=== PATIENT | male | born 1965 | race Caucasian/White ===

== ENCOUNTER 2017-09-17 21:18 | Emergency (ER) | payer BC ==
[2017-09-17 21:58] VITALS: BP 124/70; PULSE 76; BMI 23.5
[2017-09-17] MEDS ORDERED: ACETAMINOPHEN 325 MG TABLET (FP) ONE (22:53)
[2017-09-17] MEDS ORDERED: ACETAMINOPHEN 325 MG TABLET (FP) PO ONE (22:55)
[2017-09-17] MEDS ORDERED: SODIUM CHLORIDE 1,000 ML IV STA (23:07)
[2017-09-17] MEDS ORDERED: ONDANSETRON 4 MG/2 ML VIAL IVPUSH ONE (23:07)
--- NOTE | 2017-09-17 23:07 | PDOC ---
History of Present Illness - General Chief Complaint: Cold Symptoms Stated Complaint: FLU Time Seen by Provider: 09/17/17 21:51 - History of Present Illness Initial Comments: This otherwise healthy 52-year-old [employer] presents with 2 day history of body aches, malaise, nonproductive cough and fever. Patient states that he has been trying to keep up with oral hydration but has developed nausea and mild epigastric discomfort over the last several hours. Subsequently, he is now lightheaded with movement. Patient received flu vaccine this year. Past History - Past Medical History Allergies/Adverse Reactions: Allergies Allergy/AdvReac Type Severity Reaction Status Date / Time No Known Allergies Allergy Verified 09/17/17 21:21 Home Medications: Ambulatory Orders Oseltamivir Phosphate [Tamiflu -] 75 mg PO BID #10 capsule 09/18/17 COPD: No - Suicide/Smoking/Psychosocial Hx Smoking History: Never smoked Have you smoked in the past 12 months: No 'Breaking Loose' booklet given: 02/14/16 Hx Alcohol Use: No Drug/Substance Use Hx: No Substance Use Type: None *Physical Exam - Vital Signs Last Vital Signs Temp Pulse Resp BP Pulse Ox 103.0 F H 76 16 124/70 98 09/17/17 21:18 09/17/17 21:18 09/17/17 21:18 09/17/17 21:18 09/17/17 21:18 - Physical Exam Comments: GENERAL: Adult male, alert and oriented 3, in no acute distress HEAD: Normal with no signs of trauma. EYES: PERRLA, EOMI, sclera anicteric, conjunctiva clear. ENT: Ears normal, nares patent, oropharynx clear without exudates. Dry mucous membranes. NECK: Normal range of motion, supple without lymphadenopathy, JVD, or masses. LUNGS: Breath sounds equal, clear to auscultation bilaterally. No wheezes, and no crackles. HEART:Regular rate and rhythm, normal S1 and S2 without murmur, rub or gallop. ABDOMEN:.normal bowel sounds No guarding,tenderness or rebound.No masses No distention. EXTREMITIES: Normal range of motion, no edema. No clubbing or cyanosis. No erythema, or tenderness. NEUROLOGICAL: Cranial nerves II through XII grossly intact. Normal speech. No focal neurological deficits. MUSCULOSKELETAL: Back non-tender to palpation, no CVA tenderness SKIN: Warm, Dry, normal turgor, no rashes or lesions noted. ED Treatment Course - Medications Given in the ED: ED Medications Discontinued Medications Generic Name Dose Route Start Last Admin Trade Name Kelby ALVARADO Reason Stop Dose Admin Acetaminophen 650 mg 09/17/17 22:55 09/17/17 22:55 Tylenol - PO 09/17/17 22:56 650 mg NOW ONE Administration Medical Decision Making - Medical Decision Making Clinical presentation consistent with acute influenza. Patient was given a liter of normal saline IV as well as Zofran 4 mg IV. Patient received Tylenol 650 mg by mouth for his fever of 103 Patient will be discharged with Tamiflu 75 mg by mouth first dose given here. Prescription for Tamiflu 75 mg twice a day for 5 days has been transmitted to the pharmacy. He should not return to work until he is afebrile for 24 hours He should return to the emergency room if he has persistent high fever or difficulty breathing *DC/Admit/Observation/Transfer Diagnosis at time of Disposition: Acute viral syndrome - Discharge Dispostion Disposition: HOME Condition at time of disposition: Stable - Prescriptions Prescriptions: Oseltamivir Phosphate [Tamiflu -] 75 mg PO BID #10 capsule - Referrals - Patient Instructions Printed Discharge Instructions: Influenza Additional Instructions: Tamiflu 75 mg twice a day for total of 5 days No work until you have no fever for 24 hours Drink plenty of fluids; acetaminophen/ibuprofen/naproxen as needed for fever Return to ER if you have persistent high fever; severe cough or shortness of breath - Post Discharge Activity Forms/Work/School Notes: Back to Work
[2017-09-17] MEDS ORDERED: ONDANSETRON 4 MG/2 ML VIAL ONE (23:25)
[2017-09-17] MEDS ORDERED: OSELTAMIVIR PHOSPHATE 75 MG CAPSULE PO ONE (23:56)
[2017-09-17] MEDS ORDERED: OSELTAMIVIR PHOSPHATE 75 MG CAPSULE ONE (23:59)
[2017-09-18] MEDS ORDERED: SODIUM CHLORIDE 1,000 ML IV STA (00:02)
[2017-09-18 00:03] VITALS: TEMP 102.2
[2017-09-18] MEDS ORDERED: SODIUM CHLORIDE 0.9% 1000 ML INFUS.BAG IV ONE (00:05)
== END 2017-09-18 00:35 | disposition home or self-care (01) ==
LOC: FER 21:18
PROC: 3E0337Z Introduction of Electrolytic and Water Balance Substance into Peripheral Vein, Percutaneous Approach (ICD-10-PCS; principal; 2017-09-17)
PROC: 3E033GC Introduction of Other Therapeutic Substance into Peripheral Vein, Percutaneous Approach (ICD-10-PCS; 2017-09-17)
DX: B34.9 Viral infection, unspecified (principal)
CPT/HCPCS: 99281-25